=== PATIENT | male | born 1970 | race Caucasian/White ===

== ENCOUNTER 2019-03-11 13:53 | Emergency (ER) | payer MEDICAID ==
[~2019-03-11] VITALS: Ht 185.4 cm; Wt 86.0 kg
[2019-03-11 17:18] VITALS: BP 127/65
== END 2019-03-11 16:00 | disposition home or self-care (01) ==
LOC: ER 13:54
DX: Z00.00 Encounter for general adult medical examination without abnormal findings (principal); F15.20 Other stimulant dependence, uncomplicated; F10.20 Alcohol dependence, uncomplicated; Y90.9 Presence of alcohol in blood, level not specified
CPT/HCPCS: 99281

== ENCOUNTER 2019-07-21 00:10 | Emergency (ER) | payer MEDICAID ==
[~2019-07-21] VITALS: Ht 182.9 cm; Wt 79.0 kg
[2019-07-21] MEDS ORDERED: RISP1TAB13 PO (01:35)
[2019-07-21] MEDS ORDERED: risperiDONE 2mg tablet PO ONE (01:35)
[2019-07-21 02:29] VITALS: BP 124/76
== END 2019-07-21 02:33 | disposition home or self-care (01) ==
LOC: ER 00:11
DX: Z13.39 Encounter for screening examination for other mental health and behavioral disorders (principal); F15.90 Other stimulant use, unspecified, uncomplicated; F17.200 Nicotine dependence, unspecified, uncomplicated; F12.90 Cannabis use, unspecified, uncomplicated; Z59.0 Homelessness
CPT/HCPCS: 99283

== ENCOUNTER 2019-07-21 07:54 | Emergency (ER) | payer MEDICAID ==
[~2019-07-21] VITALS: Ht 185.4 cm; Wt 90.9 kg
[~2019-07-21 07:54] MED LIST: RISP1TAB13 PO
[2019-07-21 07:57] VITALS: BP 109/66
== END 2019-07-21 08:42 | disposition home or self-care (01) ==
LOC: ER 07:55
DX: F15.10 Other stimulant abuse, uncomplicated (principal); F12.90 Cannabis use, unspecified, uncomplicated; F20.9 Schizophrenia, unspecified
CPT/HCPCS: 99281

== ENCOUNTER 2019-10-04 19:45 | Emergency (ER) | payer MEDICAID ==
[~2019-10-04] VITALS: Ht 185.4 cm; Wt 73.2 kg
--- NOTE | 2019-10-04 20:00 | NUR ---
PT BROUGHT 2 BAGS OF BELONGINGS - BELONGINGS PLACED IN AMBULANCE BAY LOCKERS FOR SAFEKEEPING
[2019-10-04 20:18] LABS: BASOPHILS # (AUTO) 0.1 X10'3 (0-0.2); BASOPHILS % (AUTO) 0.6 % (0-1); EOSINOPHILS # (AUTO) 0.2 X10'3 (0-0.9); EOSINOPHILS % (AUTO) 1.8 % (0-6); HEMATOCRIT 45.6 % (42.0-52.0); HEMOGLOBIN 15.6 g/dl (14.0-17.9); LYMPHOCYTES # (AUTO) 2.8 X10'3 (1.1-4.8); LYMPHOCYTES % (AUTO) 26.8 % (21-51); MEAN CORPUSCULAR HEMOGLOBIN 31.8 PG (27.0-31.0); MEAN CORPUSCULAR HGB CONC 34.2 g/dL (33.0-36.5); MEAN CORPUSCULAR VOLUME 92.9 FL (78-98); MEAN PLATELET VOLUME 9.2 FL (7.4-10.4); MONOCYTES # (AUTO) 0.8 X10'3 (0-0.9); MONOCYTES % (AUTO) 7.3 % (2-12); NEUTROPHILS # (AUTO) 6.6 X10'3 (1.8-7.7); NEUTROPHILS % (AUTO) 63.5 % (42-75); PLATELET COUNT 208 X10'3 (140-440); RED BLOOD COUNT 4.91 X10'6 (4.70-6.10); RED CELL DISTRIBUTION WIDTH 13.4 % (11.5-14.5); WHITE BLOOD COUNT 10.4 X10'3 (4.5-11.0)
[2019-10-04] MEDS ORDERED: risperiDONE 2mg tablet PO ONE (20:25)
[2019-10-04 20:29] LABS: ALANINE AMINOTRANSFERASE 69 U/L (12-78); ALBUMIN 4.2 G/DL (3.4-5.0); ALKALINE PHOSPHATASE 77 IU/L (46-116); ANION GAP 9 (8-16); ASPARTATE AMINO TRANSFERASE 63 U/L (10-37); BILIRUBIN,TOTAL 1.5 MG/DL (0.1-1.0); BLOOD UREA NITROGEN 16 MG/DL (7-18); BUN/CREATININE RATIO 17.2 (5.4-32.0); CALCIUM 9.5 MG/DL (8.5-10.1); CHLORIDE 101 MMOL/L (99-107); CREATININE 0.93 MG/DL (0.60-1.10); GLUCOSE 103 MG/DL (70-104); POTASSIUM 3.8 MMOL/L (3.5-5.1); SODIUM 138 MMOL/L (135-145); TOTAL CARBON DIOXIDE 28.3 MMOL/L (24-32); TOTAL PROTEIN 8.5 G/DL (6.4-8.2); eGFR 86 ML/MIN
[2019-10-04 20:38] LABS: ETHANOL < 0.010 GM/DL (0.0-0.010)
[2019-10-04 20:39] LABS: CLARITY,URINE CLEAR (Clear); COLOR,URINE YELLOW (Yellow); GLUCOSE, URINE NEGATIVE (Neg); KETONES,URINE NEGATIVE (Neg); LEUKOCYTE ESTERASE ,URINE NEGATIVE (Neg); NITRITES, URINE NEGATIVE (Neg); OCCULT BLOOD,URINE LARGE (Neg); PH,URINE 6.5 (4.8-8.0); PROTEIN,URINE NEGATIVE (Neg); UROBILINOGEN,URINE 0.2 E.U/dL (0.2-1.0)
[2019-10-04 20:42] LABS: URINE AMPHETAMINE SCREEN POSITIVE (Neg); URINE BARBITUATE SCREEN NEGATIVE (Neg); URINE BENZODIAZEPINES SCREEN NEGATIVE (Neg); URINE CANNABINOID SCREEN POSITIVE (Neg); URINE COCAINE SCREEN NEGATIVE (Neg); URINE METHADONE SCREEN NEGATIVE (Neg); URINE OPIATE SCREEN NEGATIVE (Neg); URINE PHENCYCLIDINE SCREEN NEGATIVE (Neg)
[2019-10-04 20:44] LABS: UA COLLECTION TYPE VOIDED
[2019-10-04 20:47] LABS: BACTERIA,URINE NONE SEEN /HPF (Neg); MUCUS STRANDS MANY /LPF (Neg); RBC,URINE TNTC /HPF (0-2); SQUAMOUS EPITHELIAL CELL,UR MODERATE /LPF (FEW); WBC,URINE 0-4 /HPF (0-4)
--- NOTE | 2019-10-04 20:49 | NUR ---
The patient was moved to bed #22 and he was cooperative with the move. He appears very depressed with a flat affect. Soft monotone speech. He reports constant voices. He has been off his psychiatric medications for the past week and his tox screen was positive for amphetamines. He is suicidal. He denies voices.
--- NOTE | 2019-10-04 20:52 | NUR ---
Packet to [facility]
--- NOTE | 2019-10-04 22:10 | NUR ---
The patient is resting quietly on his bed.
--- NOTE | 2019-10-04 23:50 | NUR ---
The patient appears to be asleep
--- NOTE | 2019-10-05 01:22 | NUR ---
The patient appears to be sleeping. At times is talking in his sleep
--- NOTE | 2019-10-05 04:15 | NUR ---
The patient is awake and requesting food items and sandwhich given.
--- NOTE | 2019-10-05 05:08 | NUR ---
The patient appears to be sleeping
[2019-10-05 05:42] VITALS: BP 93/63
--- NOTE | 2019-10-05 06:47 | NUR ---
Patient is resting in bed peacefully at this time in the supine position. No distress observed.
--- NOTE | 2019-10-05 08:35 | NUR ---
Leonidas [facility] is at bedside assessing the patient. Mo distress observed
--- NOTE | 2019-10-05 09:16 | NUR ---
Leonidas from [facility] is going to keep patient on a mental health hold.
--- NOTE | 2019-10-05 11:10 | NUR ---
pt resting quietly in bed. no needs at this time.
--- NOTE | 2019-10-05 12:18 | NUR ---
awake in bed. asked for coffee. stated he wants to stay awake vs. sleep all day so he can deal with his thoughts and emotions. asked when lunch comes and gave him a time. occationally pt will have dry cough. resting calmly in bed.
--- NOTE | 2019-10-05 12:59 | NUR ---
nurse to nurse performed over the phone with [facility].
[2019-10-05] MEDS ORDERED: nicotine 21mg patch - 24 hr TD ONE (14:10)
[2019-10-05] MEDS ORDERED: diphenhydrAMINE 25mg capsule PO ONE (14:10)
--- NOTE | 2019-10-05 14:14 | NUR ---
pt cooperative. states he's a little antsy because he'd like a cigarett. asks for coffee. Nicotine patch order obtained from . Pt up to bathroom getting cleaned up. Will adminster when pt is done getting cleaned up.
[2019-10-05] MEDS ORDERED: RISP1TAB3 PO (17:27)
--- NOTE | 2019-10-05 17:39 | NUR ---
pt picked up by [facility] and taken to [facility]. Pt calm, cooperative, and compliant. Left with all of his belongings.
[2019-10-05] MEDS ORDERED: risperiDONE 0.5mg tablet PO SCH (21:00)
== END 2019-10-05 17:45 ==
LOC: ER 19:47
DX: F20.9 Schizophrenia, unspecified (principal); R45.851 Suicidal ideations; F12.90 Cannabis use, unspecified, uncomplicated; F15.90 Other stimulant use, unspecified, uncomplicated; Z59.0 Homelessness; Z79.899 Other long term (current) drug therapy
CPT/HCPCS: 36415; 80053; 80305; 80320; 81001; 84443; 85025; 99285; Q0163

== ENCOUNTER 2019-10-17 16:41 | Emergency (ER) | payer MEDICAID ==
[~2019-10-17] VITALS: Ht 182.9 cm; Wt 76.0 kg
[~2019-10-17 16:41] MED LIST changes: -RISP1TAB13 PO; +RISP1TAB3 PO
[2019-10-17 17:01] VITALS: BP 128/83
== END 2019-10-17 18:45 | disposition home or self-care (01) ==
LOC: ER 16:42
DX: F20.9 Schizophrenia, unspecified (principal); F12.90 Cannabis use, unspecified, uncomplicated; F15.90 Other stimulant use, unspecified, uncomplicated; Z59.0 Homelessness; Z79.899 Other long term (current) drug therapy; Z76.0 Encounter for issue of repeat prescription
CPT/HCPCS: 99281